=== PATIENT | male | born 1945 | race Caucasian/White ===

== ENCOUNTER → 2021-06-10 13:46 | Outpatient (CLI) | payer MEDICARE, SELFPAY ==
--- NOTE | ~2021-06-10 | US_ITS ---
EXAMINATION: US soft tissue head and neck DATE: 06/10/2021 14:28 INDICATION: Right neck lump. TECHNIQUE: Multiple grayscale and Doppler ultrasound images of the neck were obtained. COMPARISON: Neck CTA 01/03/2016 FINDINGS: There are normal lymph nodes in right neck in the patient's area of concern. IMPRESSION: 1. No abnormal mass or lymphadenopathy in the patient's area of concern. Reviewed, dictated and finalized at location B.
== END ==
PROVIDERS: PCP Family Medicine; Visit Provider Family Medicine
DX: R22.1 Localized swelling, mass and lump, neck (principal)
CPT/HCPCS: 76536

== ENCOUNTER 2022-04-17 11:46 | Outpatient (RCR) | payer MEDICARE, SELFPAY ==
[2022-04-17] MEDS: FAMOTIDINE 20 MG TABLET PO (14:48)
[2022-04-17] MEDS: ACETAMINOPHEN 325 MG TABLET 650 MG PO (14:48)
[2022-04-17] MEDS: diphenhydrAMINE HCl CAP 25 MG CAPSULE PO (14:48)
[2022-04-17 14:52] VITALS: BP 138/57; PULSE 68; RESP 18; TEMP 37; O2SAT 98
[2022-04-17] MEDS: BEBTELOVIMAB 175 MG/2 ML VIAL IV PUSH (15:09)
[2022-04-17 15:55] VITALS: BP 133/61; PULSE 77; RESP 18; O2SAT 99
== END 2022-04-17 16:00 ==
LOC: AMCINF 11:46
PROVIDERS: PCP Family Medicine; Referring Provider Family Medicine; Visit Provider Internal Medicine Hematology & Oncology
DX: U07.1 COVID-19 (principal)
CPT/HCPCS: A9270; M0222; Q0222

== ENCOUNTER 2022-07-30 07:42 | Outpatient (CLI) | payer MEDICARE, SELFPAY ==
--- NOTE | 2022-08-22 10:45 | WPDSLEEPSTUD ---
Sleep Study Date of Study: 07/30/22 Ordering Provider: Jp Holm MD Interpreting Physician: Deneen Torres MD Sleep Study Type: Split Polysomnogram Height: 1.7 m Weight: 117.934 kg Body Mass Index: 40.7 Neck Circumference (inches): 21 Elysian: 16 Reason for Sleep Study Loud snoring for years, was diagnosed with sleep apnea around 1986, has been on CPAP since. He has obstructive sleep apnea, hypertension, diabetes and a history of 2 strokes. * 09/21/2017 - CPAP titration with an optimal pressure of 12 cm. BMI at that time was 40.9, the same as he is now. Sleep History Joby Rodriges is a 77-year-old man with a history of obstructive sleep apnea since around 1986. There is a family history with 2 brothers and 1 sister also using CPAP. His father was a loud snorer. The patient rarely awakens from sleep feeling short of breath. He never awakens at night with heartburn, belching or coughing. He frequently snores and is frequently loud enough that others complain about it. He rarely has trouble sleeping with a cold. He rarely wakes up gasping for breath at night. He occasionally has breathing problems at night observed by others. He does not sweat excessively at night or notice his heart pounding or beating irregularly at night. He frequently falls asleep during the day, occasionally falls asleep involuntarily but never falls asleep while driving. He does not have loss of muscle tone with strong emotion. He occasionally has daytime difficulties due to excessive sleepiness. He never feels paralyzed on falling asleep or waking. He rarely has vivid dreamlike scenes upon awake lying asleep. He does not feel afraid to go to sleep. He rarely has nightmares. He rarely remembers his dreams. He does not have racing thoughts. He rarely feels sad, depressed or anxious. He rarely has muscular tension. He rarely notices parts of his body jerking, rarely kicks at night. He does not have crawling or aching feelings in his legs. He denies any kind of leg pain at night. He does not have morning jaw pain. He occasionally grinds his teeth during sleep. He is not bothered by pain during the day or awakened by pain during the night. He frequently wakes up feeling stiff the morning. He does not wake up with sore achy muscles. He occasionally wakes up with pain in the neck and spine. He has fatigue, memory problems, concentration difficulties. Normal bedtime is 1:00 a.m. taking 5 minutes to fall asleep and he does not wake during the night. He wakes the morning at 8:30 a.m.. He estimates getting 7 hours of sleep at night. His bumps him when he is snoring at night. He does not take naps in the day. He does not feel refreshed after short nap. He is usually drowsy in the morning for 3 hours or longer. Habits: Quit tobacco 25 years ago. Caffeine 1 or 2 servings a day. Occasional alcohol. No recreational drugs. [facility] Past Medical History Medical History HSV-1 (herpes simplex virus 1) infection Obesity (BMI 30.0-34.9) Other lacunar syndromes Overweight Perioral dermatitis Seborrheic dermatitis, unspecified Family History Family History (Updated 05/21/22 @ 13:40 by Kala Torres MA) Sibling Family history of kidney stones Father Diabetes mellitus Family history of lymphoma Mother Family history of glaucoma Family history of cardiovascular disease Daughter Breast cancer Migraine Other Family history of elevated blood lipids Social History Social History Smoking status: Former smoker Smoking end date: 10/26/95 Alcohol intake: current Medications Home Medications Medication Instructions Recorded Confirmed Type aspirin 81 mg tablet,delayed 81 mg PO DAILY 12/01/19 05/21/22 History release (Adult Low Dose Aspirin) ketoconazole 2 % shampoo 1 applic topical 3XW #120 mL
[2022-08-22 12:12] VITALS: BMI 40.7
== END 2022-07-31 06:13 | disposition home or self-care (01) ==
PROVIDERS: PCP Family Medicine; Visit Provider Family Medicine
DX: G47.33 Obstructive sleep apnea (adult) (pediatric) (principal)
CPT/HCPCS: 95811

== ENCOUNTER 2025-08-12 20:39 | Inpatient (IN) | payer MEDICARE, SELFPAY ==
--- OUTSIDE RECORDS SUMMARY | 2010-06-24 03:00 | XMS_ITS | Continuity of Care Document ---
Author Organization [facility] Address [address] [place] [address] Phone Care Team Providers Care Certified Ethical Hacker Name Role Phone Moy Vargas Unavailable Unavailable Procedures Procedure Date Visual Field Examination(s) Office/outpatient Visit, Est Office/outpatient Visit, Est Visual Field Examination(s) Eye Exam & Treatment Fundus Photography W/ Report Office/outpatient Visit, Est Post-op Follow-up Visit Laser Surgery Of Eye Office/outpatient Visit, Est Visual Field Examination(s) Office/outpatient Visit, Est Office/outpatient Visit, Est Eye Exam Established Pt Fundus Photography W/ Report Advance Directives Directive Yes / No Effective Date File Name No Information Encounters Encounter Description Practice Location Reason(s) For Visit Diagnoses Date Provider Providers Copied on Encounter [facility], [address], [place], [place], [address], [place] tel:[phone] [facility] No Information 0201 0 Sam Winter. [facility] , [address], [place], [address], [place]. tel:[phone] Referring Provider: [facility] [address], [place], [address]. tel:[phone] [facility], [address] [place] [address] [address], [place], [place], [address], [place] tel:[phone] [facility] No Information 2 4-201 0 Sam Winter. [address] [facility] [address], [address], [place], [place], [place], [place]. tel:[phone] Office[facility]pat ient [facility], [facility], [address] [place] [address] [address], [place], [place], [address], [place] tel:[phone] [facility] No Information 2 1200 9 Sam Winter. [address] [facility] [address], [address], [place], [place], [place]. tel:[phone] [facility], [address] [place] [address] [address], [place], [place], [address], [place] tel:[phone] [facility] No Information 1 0-200 9 Sam Winter. [address] [address], [address], [place], [place], [place]. tel:[phone] Referring Provider: Moy Monge, [facility] [address], [place], [place]. tel:[phone] [facility], [address] [place] [address] [address], [place], [place], [address], [place] tel:[phone] [facility] No Information 0 5-200 9 Sam Winter. [address] [facility] [address], [place], [address], [place]. tel:[phone] Referring Provider: Moy Monge, [facility] [address], [place], [place]. tel:[phone] Office/outpat ient Visit, [facility], [address] [place] [address] [address], [place], [place], [address], [place] tel:[phone] [facility] [place] No Information May-3 0-200 8 Sam Edmary lou. [address] [place], [place] [address]ate Center , [address], [place], [place], . tel:[phone] [facility], [address] [place] [address] [address], [place], [place], [address], [place] tel:[phone] SEC [facility] No Information February-1 6-200 8 Sam Edmary lou. [address] [place], [place] [address]ate Center , [address], [place], [place], . tel:[phone] [facility], [address], [place], [place], [address], [place] tel:[phone] [facility] No Information May-0 9-200 8 Sam Edmary lou. [address] [place], [place] [address]ate Center , [address], [place], [place], [place]. tel:[phone] Referring Provider: Moy Monge, [address] [place], [place] [address], [place], [place]. tel:[phone] Office/outpat ient Visit, [facility], [address], [place], [place], [address], [place] tel:[phone] [facility] No Information Jan-2 5-200 8 Sam Winter. [facility] , [address], [place], [place], [place]. tel:[phone] [facility], [address], [place], [place], [address], [place] tel:[phone] [facility] No Information Sep-1 7-200 7 Sam Winter. [facility] , [address], [place], [place], [place]. tel:[phone] Referring Provider: Moy Monge, [facility] [address], [place], [place]. tel:[phone] Office/outpat ient Visit, [facility], [address] [facility] [address], [place], [place], [address], tel:[phone] [facility] No Information 0200 7 Sam Winter. [facility] [address], [address], [place], [place], . tel:[phone] Office/outpat ient Visit, [facility], [address] [place] [address] [address], [place], [place], [address], tel:[phone] [facility] No Information 3200 7 Sam Winter. [facility], [address], [place], [place], . tel:[phone] [facility], [address] [facility] [facility] [address], [place], [place], [address], tel:[phone] [facility] No Information 6200 7 Sam Winter. [facility] [address], [address], [place], [place], . tel:[phone] Referring Provider: Moy Monge, April [address], [place], [place]. tel:[phone] Family History Family Member Type Diagnosis Age At Onset No Information Payers Payer name Insurance type Covered alliance party ID Tommy dorman(s) [facility] CI [id number] Social History Type Description Quantity Date Captured Comments Sex Male Smoking Status No Information Chief Complaint And Reason For Visit No Information Reason For Referral Reason For Referral No Information History Of Present Illness Encounter Date Complaint History Of Prese nt Illness No Information Functional Status Date Functional Assessmen t No Information Instructions Date Instruction Additional Infor mation No Information Assessments Type Assessment Date No Information Patient Care Teams Name Effective Dates (start - stop) Status Members No Information
--- OUTSIDE RECORDS SUMMARY | 2010-06-24 03:00 | XMS_ITS | Continuity of Care Document ---
Author Organization [facility] Address [address] [place] [address] Phone Care Team Providers Care Fur Mixer Name Role Phone Moy Vargas Unavailable Unavailable [...] Diagnoses Date Provider Providers Copied on Encounter [facility], [address], [place], [place], [address], [place] tel:[phone] [facility] No Information 0201 0 Sam Winter. [facility] , [address], [place], [address], [place]. tel:[phone] Referring Provider: [facility] [address], [place], [address]. tel:[phone] [facility]pat [facility], [address] [place] [address] [address], [place], [place], [address], [place] tel:[phone] [facility] No Information 2 4-201 0 Sam Winter. [address] [facility] [address], [address], [place], [facility], [place]. tel:[phone] Office/outpat ient [facility], [facility], [address] [place] [address] [address], [place], [place], [address], [place] tel:[phone] [facility] No Information 2 1200 9 Sam Winter. [address] [facility] [address], [address], [place], [facility], [place]. tel:[phone] [facility], [address] [place] [address] [address], [place], [place], [address], [place] tel:[phone] [facility] No Information 1 0-200 9 Sam Winter. [address] [facility] [address], [address], [place], [facility], [place]. tel:[phone] Referring Provider: Moy Monge, [facility] [address], [place], [facility]. tel:[phone] [facility], [address] [place] [address] [address], [place], [place], [address], [place] tel:[phone] [facility] No Information 0 5-200 9 Sam Winter. [address] [facility] [address], [place], [address], [place]. tel:[phone] Referring Provider: Moy Monge, [employer] [address], [place], [facility]. tel:[phone] Office/outpat ient Visit, [facility], [address] [place] [address] [address], [place], [place], [address], [place] tel:[phone] [facility] [place] No Information May-3 0-200 8 Sam Edmary lou. [address] [place], [place] [address]ate Center , [address], [place], [facility], . tel:[phone] [facility], [address] [place] [address] [address], [place], [place], [address], [place] tel:[phone] [facility] No Information February-1 6-200 8 Sam Edmary lou. [address] [place], [place] [address]ate Center , [address], [place], [facility], . tel:[phone] [facility], [address], [place], [place], [address], [place] tel:[phone] [facility] No Information May-0 9-200 8 Sam Edmary lou. [address] [place], [place] [address]ate Center , [address], [place], [facility], [place]. tel:[phone] Referring Provider: Moy Monge, [address] [place], [place] [address]ate [address], [place], [facility]. tel:[phone] Office/outpat ient Visit, [facility] [address], [place], [place], [address], [place] tel:[phone] [facility] No Information Jan-2 5-200 8 Sam Winter. [facility] , [address], [place], [facility], [place]. tel:[phone] [facility], [address], [place], [place], [address], [place] tel:[phone] [facility] No Information Sep-1 7-200 7 Sam Winter. [facility] , [address], [place], [facility], [place]. tel:[phone] Referring Provider: Moy Monge, [facility] [address], [place], [facility]. tel:[phone] Office/outpat ient Visit, [facility], [address] [facility] [address], [place], [place], [address], tel:[phone] [facility] No Information 0200 7 Sam Winter. [facility] [address], [address], [place], [facility], . tel:[phone] Office/outpat ient Visit, [facility], [address] [place] [address] [address], [place], [place], [address], tel:[phone] [facility] No Information 3200 7 Sam Winter. [facility] [address], [address], [place], [facility], . tel:[phone] [facility], [address] [facility] [address], [place], [place], [address], tel:[phone] [facility] No Information 6200 7 Sam Winter. [facility] [address], [address], [place], [facility], . tel:[phone] Referring Provider: Moy Monge, April [address], [place], [facility]. tel:[phone] Family History Family Member Type Diagnosis Age At Onset No Information Payers Payer name Insurance type Covered constitution party ID Tommy dorman(s) [facility] CI [id number] Social History Type Description Quantity Date Captured [...]
--- NOTE | ~2025-08-12 | MR_ITS ---
EXAMINATION: MR brain/brain stem wo con DATE: 08/13/2025 15:14 INDICATION: Stroke. TECHNIQUE: Magnetic resonance imaging (MRI) of the brain and brainstem was performed without intravenous contrast. COMPARISON: Brain MRI 01/03/2016, head CT 08/12/2025 FINDINGS: There are scattered areas of nonspecific increased T2-weighted signal intensity in the cerebral white matter and gris. There is an old infarct in left frontoparietal region. There is no intracranial hemorrhage, acute infarction, or abnormal intracranial mass lesion. The ventricles are normal in size. There is mucosal thickening in the paranasal sinuses. Left maxillary sinus is small with thickened and sclerotic rodriguez, consistent with chronic sinusitis. There are likely changes of ocular lens replacement surgeries. The mastoid air cells are normal. IMPRESSION: 1. Old infarct in left frontoparietal region. 2. Mild nonspecific cerebral white matter disease and pontine disease, which likely represents chronic small vessel ischemic disease. 3. Chronic left maxillary sinusitis. Reviewed, dictated and finalized at location E. IMPRESSION: 1. Old infarct in left frontoparietal region. 2. Mild nonspecific cerebral white matter disease and pontine disease, which layla renner represents chronic small vessel ischemic disease. 3. Chronic left maxillary sinusitis.
--- NOTE | ~2025-08-12 | CT_ITS ---
EXAMINATION: CT brain wo con DATE: 08/12/2025 21:07 INDICATION: Transient confusion. TECHNIQUE: Computed tomography (CT) of the head was performed without intravenous contrast. The mA was adjusted according to patient size. Iterative reconstruction technique was employed. The dose-length product was 681.00 mGy-cm. COMPARISON: Head CT 01/03/2016 FINDINGS: There is an old infarct in left frontoparietal region. There are scattered areas of low attenuation in the cerebral white matter. There is no intracranial hemorrhage, acute infarction, or abnormal intracranial mass lesion. The ventricles are normal in size. There are likely changes of ocular lens replacement surgeries. There is posterior scalp soft tissue swelling. There is mucosal thickening in the paranasal sinuses. Left maxillary sinus is small with sclerosis and thickening of the rodriguez, consistent with chronic sinusitis. The mastoid air cells are normal. IMPRESSION: 1. Old infarct in left frontoparietal region. 2. Mild nonspecific cerebral white matter disease, which likely represents chronic small vessel ischemic disease. 3. Chronic left maxillary sinusitis. Reviewed, dictated and finalized at location E. IMPRESSION: 1. Old infarct in left frontoparietal region. 2. 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 3. Chronic left maxillary sinusitis.
--- NOTE | ~2025-08-12 | CT_ITS ---
EXAMINATION: CTA brain carotid DATE: 08/12/2025 21:07 INDICATION: Altered mental status. TECHNIQUE: Computed tomographic angiography (CTA) of the head was performed with 100 mL Omnipaque-350 intravenous contrast. CTA of the neck was performed with intravenous contrast. Automated exposure control and iterative reconstruction technique were employed. The dose-length product was 1182.44 mGy-cm. Maximum intensity projection and volume rendered 3D-reconstructions were created by the technologist on a separate workstation. COMPARISON: Head CT 08/12/2025 FINDINGS: HEAD CTA: There is an old infarct in the left frontoparietal region. There are scattered areas of low attenuation in the cerebral white matter. There is no intracranial hemorrhage, acute infarction, or abnormal intracranial mass lesion. The ventricles are normal in size. There is mucosal thickening in the paranasal sinuses. Left maxillary sinus is small with thickening and sclerosis of the sinus rodriguez, consistent with chronic sinusitis. The mastoid air cells are normal. There are likely changes of ocular lens replacement surgeries. Left vertebral artery is dominant. There is no significant stenosis of basilar artery or the posterior cerebral arteries. The posterior communicating arteries are normal. There is no significant stenosis of the intracranial internal carotid arteries or anterior or middle cerebral arteries. Anterior communicating artery is normal. There is no aneurysm. NECK CTA: There is an 8 mm nodule in left thyroid lobe, likely not clinically significant. There is no significant stenosis of the vertebral arteries. There is plaque in the proximal internal carotid arteries. There is 0% stenosis of the proximal right internal carotid artery relative to normal distal artery lumen diameter (NASCET criteria). There is 40% stenosis of the proximal left internal carotid artery relative to normal distal artery lumen diameter. There is severe cervical spondylosis. C1 ring is ununited posteriorly, a normal variant. IMPRESSION: 1. Old infarct in left frontoparietal region. 2. Mild nonspecific cerebral white matter disease, which likely represents chronic small vessel ischemic disease. 3. No aneurysm or significant intracranial arterial stenosis. 4. 0% stenosis of the proximal right internal carotid artery relative to normal distal artery lumen diameter (NASCET criteria). 5. 40% stenosis of the proximal left internal carotid artery relative to normal distal artery lumen diameter. 6. Chronic sinusitis. Reviewed, dictated and finalized at location E. IMPRESSION: 1. Old infarct in left frontoparietal region. 2. 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 3. No aneurysm or significant intracranial arterial stenosis. 4. 0% stenosis of the proximal right internal carotid artery relative to normal distal artery lumen diameter (NASCET criteria). 5. 40% stenosis of the proximal left internal carotid artery relative to normal distal artery lumen diameter. 6. Chronic sinusitis.
--- OUTSIDE RECORDS SUMMARY | 2025-08-12 20:41 | XMS_ITS | Clinical Summary ---
Author Organization [facility] [address] Address [address] [place] [address] Care Team Providers Care Touch Up Painter Name Role Phone Jp Holm MD Primary Care Provider [phone] Social History Tobacco Use Types Packs/Day Years Used Date Smoking Tobacco: Never Assessed Personal Safety Answer Date Recorded Getting School Help Needed Not on file 12/25 Sex and Gender Information Value Date Recorded Sex Assigned at Not on file Legal Sex Male 2:27 AM STENOTYPIST Gender Identity Not on file Sexual Orientation Not on file Plan of Treatment Health Maintenance Due Date Last Done Comments Depression Screening 1945 Fall Risk Assessment 1945 Hepatitis C Screening 1945 DTaP/Tdap/Td Vaccine (1 - Tdap) 1957 Hepatitis B Screening 1964 Pneumococcal vaccine 65+ (1 of 1 - PCV) 1996 Well Visit 65+ 2011 Zoster Vaccine (2 of 3) 04/25/2015 02/28/2015 Covid-19 Vaccine (4 - 2024-2 6 season) 2025 09/05/2021, 01/15/2021, 12/06/2020 Influenza Vaccine (#1) 2025 , 08/11/2019, 08/09/2018, Additional history exists Insurance [facility] MEDIC[facility] Care Teams Touch Up Painter Relationship Specialty Start Date End Date Jp Holm MD PCP - General 01/15/16
--- NOTE | 2025-08-12 20:44 | ECG_ITS ---
Test Date: 2025-08-12 22:13:19 Measurements Intervals [place] Rate: 71 P: 54 CT: 185 QRS: 4 QRSD: 102 T: 60 QT: 330 QTc: 361 Interpretive Statements SINUS RHYTHM INCOMPLETE RIGHT BUNDLE BRANCH BLOCK DELAYED PRECORDIAL R/S TRANSITION CONSIDER INFERIOR INFARCT, AGE INDETERMINATE BORDERLINE T WAVE ABNORMALITY- HIGH LATERAL LEADS BASELINE ARTIFACT- I, II, III, AVR, AVL, AVF, V1-V6 BORDERLINE ECG No previous ECG available for comparison Electronically Signed On 08-13-2025 08:36:27 CDT by Aden Fisher D.O.
--- NOTE | 2025-08-12 20:55 | ED.AMS ---
HPI - Altered Mental Status General Chief Complaint: Altered Mental Status Stated Complaint: cva symptoms Time Seen by Provider: 08/12/25 20:44 Source: patient Mode of arrival: wheelchair Limitations: no limitations History of Present Illness HPI narrative: This is a 80-year-old male with history of GRANADOS, peripheral arterial disease, CVA, hypertension who presents the ED for transient confusion. Patient states that at 1945 patient had onset of confusion that he believes lasted 10-15 minutes. He states that his daughter witnessed this. She is not here at this time. Denies any numbness, tingling, weakness. Reports feeling fine just prior to this and feels back to his baseline at this time. Related Data Home Medications ?Medication ?Instructions ?Recorded ?Confirmed ?Last Taken ?Type aspirin 81 mg tablet,delayed 81 mg PO DAILY 12/01/19 08/12/25 Unknown History release (Adult Low Dose Aspirin) Allergies Allergy/AdvReac Type Severity Reaction Status Date / Time hydralazine Allergy Unknown Hives / Verified 08/12/25 21:22 Red Face Review of Systems Review of Systems: Gen.: Denies fevers or chills Eyes: Denies eye pain or visual change ENT: Denies congestion Respiratory: Denies shortness of breath or cough CV: Denies chest pain or palpitations GI: Denies abdominal pain nausea, emesis or diarrhea denies burning, urgency, frequency or hematuria Musculoskeletal: Denies back pain or muscle pain Neuro: As per HPI Skin: Denies rash Except as documented, all other systems reviewed and negative PMFSH Past Medical History Medical History Obesity (BMI 30.0-34.9) Perioral dermatitis 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 Overweight Seborrheic dermatitis, unspecified Family History Family History Sibling Family history of kidney stones Father Diabetes mellitus Family history of lymphoma Mother Family history of glaucoma Family history of cardiovascular disease Daughter Breast cancer Migraine Other Family history of elevated blood lipids Social History Social History Smoking status: Former smoker Smoking end date: 10/26/95 Alcohol intake: current Alcohol use details: occasionally Substance use: never Substance use type: does not use Do You Feel Safe in your Home?: Yes Lack of Transportation: No Lack of Food: Never True Current Housing: I Have Housing Concerned About Future Housing: No Difficulty Paying Gas/Electric Bills: No Difficulty Paying for Meds: No Currently Unemployed: No Education: High School Diploma/GED Difficulty w/ Childcare or Family Care: No Exam Narrative: APPEARANCE: No acute distress, nontoxic, resting in bed EYES: EOMI HEENT: Normocephalic, atraumatic, OMM RESPIRATORY: No respiratory distress Clear to auscultation bilaterally with no rhonchi wheezing or rales. CARDIOVASCULAR: Regular rate and rhythm without murmurs rubs or gallops. ABDOMINAL: Soft, nontender, nondistended, no rebound or guarding MUSCULOSKELETAl: Moves all extremities. No clubbing, cyanosis or edema. NEURO: Awake and alert. Following commands, speech normal, no focal deficits. CN 2 through 12 intact. 5/5 strength to all extremities. Sensation intact globally. NIH 0 SKIN:: Warm, dry. No rashes lesions or abrasions PSYCHIATRIC: Normal affect/mood, Course Vital Signs Vital signs: Vital Signs Temperature 97.6 F 08/12/25 21:12 Pulse Rate 70 08/12/25 21:12 Respiratory Rate 15 08/12/25 21:12 Blood Pressure 149/80 H 08/12/25 21:12 Pulse Oximetry 99 08/12/25 21:12 Oxygen Delivery Room Air 08/12/25 21:12 Temperature 97.6 F 08/12/25 21:21 Pulse Rate 64 08/13/25 09:00 Respiratory Rate 15 08/13/25 09:00 Blood Pressure 152/70 H 08/13/25 09:00 Pulse Oximetry 99 08/13/25 09:00 Oxygen Delivery Room Air 08/13/25 09:00 MDM - Altered Mental Status MDM Narrative Medical decision making narrative: 80-year-old male presenting for concerns for altered mental status and stroke. Patient was seen and stroke. And NIH was 0. He reported that he was feeling better. He was otherwise hemodynamically stable, afebrile. Patient taken immediately to CT. But read showed no evidence of intracranial bleeds. CT head and CTA head/neck showed no acute process. CBC and CMP without significant abnormalities. UA clear. UDS negative. Upon further discussion with the patient and daughter, he was having some intermittent word-finding difficulties which was similar to a prior stroke. Suspect that he is having a stroke at this time. He was given 162 mg aspirin. I did discuss the case with Dr. Parker, neurology, does recommend Plavix now and MRI tomorrow and he will see the patient as consult. Case discussed with hospitalist who will admit the patient. Differential Diagnosis Differential diagnosis: Likely altered mental status and other (CVA, intoxication, electrolyte abnormality) Medical Records Attestation: I reviewed the patient's medical records. Lab Data Attestation: I reviewed the patient's lab results. 08/12/25 20:55 08/12/25 20:56 Labs: Lab Results 08/12/25 08/12/25 08/12/25 Range/Units 20:43 20:55 20:56 WBC 8.1 (4.5-10.0) K/mm3 RBC 4.72 (4.6-6.20) M/mm3 Hgb 15.2 (14.0-18.0) g/dL Hct 45.7 (42.0-52.0) % MCV 96.8 (80-100) fl MCH 32.2 (26-34) pg MCHC 33.3 (32-36) g/dl RDW 12.9 (11.5-14.5) % Plt Count 293 (150-375) k/mm3 MPV 8.9 (7.4-10.4) fl Immature Gran % (Auto) 0.4 (0-0.5) % Neut % (Auto) 50.0 (45.5-73.1) % Lymph % (Auto) 37.2 (18.3-44.2) % [place] % (Auto) 10.1 H (2.6-8.5) % Eos % (Auto) 1.7 (0-4.4) % Baso % (Auto) 0.6 (0.2-1.2) % Lymph # (Auto) 3.01 (0.9-3.2) K/mm3 [place] # (Auto) 0.8 H (0.1-0.6) K/mm3 Eos # (Auto) 0.1 (0-0.3) K/mm3 Baso # (Auto) 0.1 (0.0-0.1) K/mm3 Abs Immat Gran (auto) 0.03 (0.00-0.031) K/mm3 Absolute Neuts (auto) 4.0 (1.3-6.7) K/mm3 Absolute Nucleated RBC 0.000 (0.0-0.012) K/mm3 Nucleated RBC % 0.0 (0.0-0.2) % PT 13.3 (11.1-14.7) Seconds INR 1.0 APTT 34.8 (22.3-36.8) Seconds Sodium 141 (137-145) mmol/L Potassium 4.2 (3.4-5.0) mmol/L Chloride 102 (98-107) mmol/L Carbon Dioxide 29 (22-30) mmol/L Anion Gap 10 (4-12) mmol/L BUN 16 (9-20) mg/dL Creatinine 1.04 1.20 (0.7-1.3) mg/dL Estim Creat Clear Calc Not Reportable Not Reportable Estimated GFR > 60 58 L (59 - ) Glucose 124 H (65-110) mg/dL POC Capillary Glucose 131 H (65-105) mg/dl Calcium 10.0 (8.4-10.2) mg/dL Total Bilirubin 0.7 (0.2-1.3) mg/dL AST 53 (17-59) U/L ALT 49 (6-50) U/L Alkaline Phosphatase 78 (38-126) U/L Troponin I < 0.012 (0.000-0.034) ng/mL Total Protein 8.9 H (6.3-8.2) g/dL Albumin 4.8 (3.5-5.1) g/dL Urine Color (Yellow) Urine Appearance (Clear) Urine pH (5.0-9.0) Ur Specific [place] (1.001-1.035) Urine Protein (Negative) mg/dL Urine Glucose (UA) (Negative) mg/dL Urine Ketones (Negative) mg/dL Ur Blood (Man) (Negative) Urine Nitrate (Negative) Urine Bilirubin (Negative) Urine Urobilinogen (<2.0) mg/dL Leukocyte Esterase Rfl (Negative) CORDELL/UL Urine Opiates Screen (Negative) Urine Methadone Screen (Negative) Ur Barbiturates Screen (Negative) Ur Phencyclidine Scrn (Negative) Ur Amphetamine Screen (Negative) U Benzodiazepines Scrn (Negative) Urine Cocaine Screen (Negative) U Cannabinoids Screen (Negative) Ethyl Alcohol < 10 (<10) mg/dL 08/12/25 Range/Units 21:17 WBC (4.5-10.0) K/mm3 RBC (4.6-6.20) M/mm3 Hgb (14.0-18.0) g/dL Hct (42.0-52.0) % MCV (80-100) fl MCH (26-34) pg MCHC (32-36) g/dl RDW (11.5-14.5) % Plt Count (150-375) k/mm3 MPV (7.4-10.4) fl Immature Gran % (Auto) (0-0.5) % Neut % (Auto) (45.5-73.1) % Lymph % (Auto) (18.3-44.2) % [place] % (Auto) (2.6-8.5) % Eos % (Auto) (0-4.4) % Baso % (Auto) (0.2-1.2) % Lymph # (Auto) (0.9-3.2) K/mm3 [place] # (Auto) (0.1-0.6) K/mm3 Eos # (Auto) (0-0.3) K/mm3 Baso # (Auto) (0.0-0.1) K/mm3 Abs Immat Gran (auto) (0.00-0.031) K/mm3 Absolute Neuts (auto) (1.3-6.7) K/mm3 Absolute Nucleated RBC (0.0-0.012) K/mm3 Nucleated RBC % (0.0-0.2) % PT (11.1-14.7) Seconds INR APTT (22.3-36.8) Seconds Sodium (137-145) mmol/L Potassium (3.4-5.0) mmol/L Chloride (98-107) mmol/L Carbon Dioxide (22-30) mmol/L Anion Gap (4-12) mmol/L BUN (9-20) mg/dL Creatinine (0.7-1.3) mg/dL Estim Creat Clear Calc Estimated GFR (59 - ) Glucose (65-110) mg/dL POC Capillary Glucose (65-105) mg/dl Calcium (8.4-10.2) mg/dL Total Bilirubin (0.2-1.3) mg/dL AST (17-59) U/L ALT (6-50) U/L Alkaline Phosphatase (38-126) U/L Troponin I (0.000-0.034) ng/mL Total Protein (6.3-8.2) g/dL Albumin (3.5-5.1) g/dL Urine Color Yellow (Yellow) Urine Appearance Clear (Clear) Urine pH 5.5 (5.0-9.0) Ur Specific [place] 1.021 (1.001-1.035) Urine Protein Negative (Negative) mg/dL Urine Glucose (UA) Negative (Negative) mg/dL Urine Ketones Trace H (Negative) mg/dL Ur Blood (Man) Negative (Negative) Urine Nitrate Negative (Negative) Urine Bilirubin Negative (Negative) Urine Urobilinogen 1.0 (<2.0) mg/dL Leukocyte Esterase Rfl Negative (Negative) CORDELL/UL Urine Opiates Screen Negative (Negative) Urine Methadone Screen Negative (Negative) Ur Barbiturates Screen Negative (Negative) Ur Phencyclidine Scrn Negative (Negative) Ur Amphetamine Screen Negative (Negative) U Benzodiazepines Scrn Negative (Negative) Urine Cocaine Screen Negative (Negative) U Cannabinoids Screen Negative (Negative) Ethyl Alcohol (<10) mg/dL Imaging Data Attestation: I personally reviewed and interpreted this imaging study as follows: Radiologist's impression: CT Head IMPRESSION: 1. Old infarct in left frontoparietal region. 2. Mild nonspecific cerebral white matter disease, which likely represents chronic small vessel ischemic disease. 3. Chronic left maxillary sinusitis. CTA Head/Neck IMPRESSION: 1. Old infarct in left frontoparietal region. 2. Mild nonspecific cerebral white matter disease, which likely represents chronic small vessel ischemic disease. 3. No aneurysm or significant intracranial arterial stenosis. 4. 0% stenosis of the proximal right internal carotid artery relative to normal distal artery lumen diameter (NASCET criteria). 5. 40% stenosis of the proximal left internal carotid artery relative to normal distal artery lumen diameter. 6. Chronic sinusitis. Discharge Plan Discharge Clinical Impression: Difficulty articulating words, History of cardioembolic cerebrovascular accident (CVA) Patient Disposition: Still a Patient Condition: Stable
[2025-08-12 20:58] LABS: Estimated Glomerular Filt Rate 58
[2025-08-12 21:08] LABS: Hematocrit 45.7 % (42.0-52.0); Hemoglobin 15.2 g/dL (14.0-18.0); Immature Granulocyte Percent A 0.4 % (0-0.5); Lymphocytes Absolute Auto 3.01 K/mm3 (0.9-3.2); Mean Corpuscular HGB Conc 33.3 g/dl (32-36); Mean Corpuscular Hemoglobin 32.2 pg (26-34); Mean Corpuscular Volume 96.8 fl (80-100); Nucleated Red Blood Cells Absolute Auto 0.000 K/mm3 (0.0-0.012); Nucleated Red Blood Cells Perc 0.0 % (0.0-0.2); Platelet Count Result 293 k/mm3 (150-375); Red Blood Count 4.72 M/mm3 (4.6-6.20); White Blood Count 8.1 K/mm3 (4.5-10.0)
[2025-08-12 21:12] VITALS: BP 149/80; PULSE 70; RESP 15; TEMP 36.4; O2SAT 99
[2025-08-12 21:18] LABS: Alanine Aminotransferase 49 U/L (6-50); Albumin Level 4.8 g/dL (3.5-5.1); Alkaline Phosphatase 78 U/L (38-126); Anion Gap 10 mmol/L (4-12); Aspartate Amino Transferase 53 U/L (17-59); Bilirubin,Total 0.7 mg/dL (0.2-1.3); Blood Urea Nitrogen 16 mg/dL (9-20); Calcium 10.0 mg/dL (8.4-10.2); Carbon Dioxide 29 mmol/L (22-30); Chloride 102 mmol/L (98-107); Estimated Glomerular Filt Rate > 60; Glucose 124 mg/dL (65-110); Potassium 4.2 mmol/L (3.4-5.0); Sodium 141 mmol/L (137-145); Total Protein 8.9 g/dL (6.3-8.2)
[2025-08-12 21:19] VITALS: O2SAT 99
[2025-08-12 21:21] VITALS: BP 149/80; PULSE 70; RESP 17; TEMP 36.4; O2SAT 100
[2025-08-12 21:25] LABS: Add Urine Microscopic? NO; Appearance Urine Clear (Clear); Glucose Urine UA Negative (Negative); Leukocyte Esterase Ur Negative LEU/UL (Negative); Nitrate Urine Negative (Negative); Specific Grav Ur 1.021 (1.001-1.035)
[2025-08-12 21:25] LABS: INR 1.0; Prothrombin Time 13.3 Seconds (11.1-14.7)
[2025-08-12 21:26] LABS: Partial Thromboplastin Time 34.8 Seconds (22.3-36.8)
[2025-08-12 21:30] LABS: Troponin I < 0.012 ng/mL (0.000-0.034)
[2025-08-12 21:41] LABS: Cannabinoid Screen Urine Negative (Negative)
[2025-08-12] MEDS: ASPIRIN 81 MG CHEWABLE TABLET 161 MG PO (21:53)
[2025-08-12 22:01] VITALS: BP 130/65; PULSE 66; RESP 12; O2SAT 97
[2025-08-12] MEDS: CLOPIDOGREL BISULFATE 75 MG TABLET PO (22:02)
[2025-08-12 22:42] VITALS: BP 132/71; PULSE 61; RESP 15; O2SAT 98
[2025-08-13] VITALS (12 sets, daily range): BP systolic 132–154; BP diastolic 66–96; PULSE 57–95; RESP 14–20; TEMP 36.3–36.8; O2SAT 95–99; BMI 41.2; BMI 42.5
--- NOTE | 2025-08-13 00:05 | PM.IMHP ---
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 Overweight Seborrheic dermatitis, unspecified Family History Family History Sibling Family history of kidney stones Father Diabetes mellitus Family history of lymphoma Mother Family history of glaucoma Family history of cardiovascular disease Daughter Breast cancer Migraine Other Family history of elevated blood lipids Social History Social History Smoking status: Former smoker Smoking end date: 10/26/95 Alcohol intake: current Alcohol use details: occasionally Substance use: never Substance use type: does not use Do You Feel Safe in your Home?: Yes Lack of Transportation: No Lack of Food: Never True Current Housing: I Have Housing Concerned About Future Housing: No Difficulty Paying Gas/Electric Bills: No Difficulty Paying for Meds: No Currently Unemployed: No Education: High School Diploma/GED Difficulty w/ Childcare or Family Care: No Meds Home Medications and Allergies Home Medications ?Medication ?Instructions ?Recorded ?Confirmed ?Type aspirin 81 mg tablet,delayed 81 mg PO DAILY 12/01/19 08/12/25 History release (Adult Low Dose Aspirin) icosapent ethyl 1 gram capsule 2 g (2 x 1 gram) PO BID #360 caps 11/01/24 08/12/25 Rx (Vascepa) metformin 500 mg tablet,extended See Rx Instructions .Route 03/21/25 08/12/25 Rx release 24 hr .COMPLEX #180 tabs doxycycline monohydrate 100 mg 100 mg PO DAILY #90 caps 03/28/25 08/12/25 Rx capsule amlodipine 5 mg tablet See Rx Instructions .Route 06/19/25 08/12/25 Rx .COMPLEX #180 tabs atorvastatin 10 mg tablet See Rx Instructions .Route 06/19/25 08/12/25 Rx .COMPLEX #90 tabs clopidogrel 75 mg tablet See Rx Instructions .Route 06/19/25 08/12/25 Rx .COMPLEX #90 tabs ergocalciferol (vitamin D2) 1,250 See Rx Instructions .Route 06/19/25 08/12/25 Rx mcg (50,000 unit) capsule (Vitamin .COMPLEX #26 caps D2) lisinopril 20 mg tablet See Rx Instructions .Route 06/19/25 08/12/25 Rx .COMPLEX #180 tabs Allergies Allergy/AdvReac Type Severity Reaction Status Date / Time hydralazine Allergy Unknown Hives / Verified 08/12/25 21:22 Red Face Vital Signs Vital Signs - 24 hr 08/12/25 21:12 08/12/25 21:19 08/12/25 21:21 Temperature 97.6 F Pulse Rate 70 70 Respiratory Rate 15 Blood Pressure 149/80 H Pulse Oximetry 99 99 Oxygen Delivery Room Air Room Air 08/12/25 21:21 08/12/25 22:01 08/12/25 22:42 Temperature 97.6 F Pulse Rate 70 66 61 Respiratory Rate 17 12 15 Blood Pressure 149/80 H 130/65 132/71 Pulse Oximetry 100 97 98 Oxygen Delivery H&P: Results Labs Labs: Short CBC 08/12/25 Range/Units 20:55 WBC 8.1 (4.5-10.0) K/mm3 Hgb 15.2 (14.0-18.0) g/dL Hct 45.7 (42.0-52.0) % Plt Count 293 (150-375) k/mm3 BMP 08/12/25 08/12/25 20:55 20:56 Sodium 141 Potassium 4.2 Chloride 102 Carbon Dioxide 29 BUN 16 Creatinine 1.04 1.20 Glucose 124 H Calcium 10.0 Cardiac Enzymes 08/12/25 Range/Units 20:55 Troponin I < 0.012 (0.000-0.034) ng/mL Liver Function 08/12/25 Range/Units 20:55 Total Bilirubin 0.7 (0.2-1.3) mg/dL AST 53 (17-59) U/L ALT 49 (6-50) U/L Alkaline Phosphatase 78 (38-126) U/L Albumin 4.8 (3.5-5.1) g/dL Urine 08/12/25 Range/Units 21:17 Urine Color Yellow (Yellow) Urine Appearance Clear (Clear) Urine pH 5.5 (5.0-9.0) Ur Specific [place] 1.021 (1.001-1.035) Urine Protein Negative (Negative) mg/dL Urine Glucose (UA) Negative (Negative) mg/dL
--- NOTE | 2025-08-13 09:37 | PC.NURSE ---
Pharmacy contacted for AM dose of medications.
[2025-08-13] MEDS: CLOPIDOGREL BISULFATE 75 MG TABLET PO (10:09)
[2025-08-13] MEDS: ASPIRIN 81 MG ENTERIC TABLET PO (10:10)
--- OUTSIDE RECORDS SUMMARY | 2025-08-13 10:20 | XMS_ITS | Clinical Summary ---
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
--- NOTE | 2025-08-13 10:25 | PC.NURSE ---
Only 40mg Atorvastatin received from pharmacy. Called to get full dose at this time.
[2025-08-13] MEDS: ATORVASTATIN 40 MG TABLET 80 MG PO (10:40)
--- NOTE | 2025-08-13 10:59 | PM.IMHP ---
H&P: HPI History of Present Illness Date/Time: 08/13/25 10:59 Chief Complaint: ams Narrative: 80-year-old male with history of GRANADOS, peripheral arterial disease, CVA, hypertension admitted from ED for an apisode of confusion. Patient states that at 1945 patient had onset of confusion that he believes lasted 10-15 minutes. He states that his daughter witnessed this. She is not here at this time. Denies any numbness, tingling, weakness. Reports feeling fine just prior to this and feels back to his baseline at this time. NIH- [address] head-no evidence of intracranial bleeds. CTA head/neck showed no acute process. CBC and CMP without significant abnormalities. UA clear. UDS negative. In ed he was having some intermittent word-finding difficulties which was similar to a prior stroke. He was given 162 mg aspirin. ED Md consulted Dr. Parker, neurology, who recommend Plavix now and MRI and admission. Pt is seen and examined. His speech is clear, no neuro deficit noted. He denies pain, sob, n/v/d. Review of Systems Review of Systems: All systems reviewed & are unremarkable except as noted in HPI and below PMFSH Past Medical History Medical History Obesity (BMI 30.0-34.9) Perioral dermatitis 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 Overweight Seborrheic dermatitis, unspecified Family History Family History Sibling Family history of kidney stones Father Diabetes mellitus Family history of lymphoma Mother Family history of glaucoma Family history of cardiovascular disease Daughter Breast cancer Migraine Other Family history of elevated blood lipids Social History Social History Smoking status: Former smoker Alcohol intake: current Drinks per week: 1 Alcohol use details: occasionally Substance use: never Substance use type: does not use Do You Feel Safe in your Home?: Yes Lack of Transportation: No Lack of Food: Never True Current Housing: I Have Housing Concerned About Future Housing: No Difficulty Paying Gas/Electric Bills: No Difficulty Paying for Meds: No Currently Unemployed: No Education: High School Diploma/GED Difficulty w/ Childcare or Family Care: No Spiritual care concerns: No Meds Home Medications and Allergies Home Medications ?Medication ?Instructions ?Recorded ?Confirmed ?Type aspirin 81 mg tablet,delayed 81 mg PO DAILY 12/01/19 08/12/25 History release (Adult Low Dose Aspirin) icosapent ethyl 1 gram capsule 2 g (2 x 1 gram) PO BID #360 caps 11/01/24 08/12/25 Rx (Vascepa) metformin 500 mg tablet,extended See Rx Instructions .Route 03/21/25 08/12/25 Rx release 24 hr .COMPLEX #180 tabs amlodipine 5 mg tablet See Rx Instructions .Route 06/19/25 08/12/25 Rx .COMPLEX #180 tabs atorvastatin 10 mg tablet See Rx Instructions .Route 06/19/25 08/12/25 Rx .COMPLEX #90 tabs clopidogrel 75 mg tablet See Rx Instructions .Route 06/19/25 08/12/25 Rx .COMPLEX #90 tabs ergocalciferol (vitamin D2) 1,250 See Rx Instructions .Route 06/19/25 08/12/25 Rx mcg (50,000 unit) capsule (Vitamin .COMPLEX #26 caps D2) lisinopril 20 mg tablet See Rx Instructions .Route 06/19/25 08/12/25 Rx .COMPLEX #180 tabs Allergies Allergy/AdvReac Type Severity Reaction Status Date / Time hydralazine Allergy Unknown Hives / Verified 08/13/25 13:41 Red Face Vital Signs Vital Signs - 24 hr 08/12/25 21:12 08/12/25 21:19 08/12/25 21:21 Temperature 97.6 F Pulse Rate 70 70 Respiratory Rate 15 Blood Pressure 149/80 H Pulse Oximetry 99 99 Oxygen Delivery Room Air Room Air 08/12/25 21:21 08/12/25 22:01 08/12/25 22:42 Temperature 97.6 F Pulse Rate 70 66 61 Respiratory Rate 17 12 15 Blood Pressure 149/80 H 130/65 132/71 Pulse Oximetry 100 97 98 Oxygen Delivery 08/13/25 03:02 08/13/25 04:00 08/13/25 04:01 Temperature Pulse Rate 75 95 58 L Respiratory Rate 18 14 Blood Pressure 149/80 H 137/81 Pulse Oximetry 98 97 98 Oxygen Delivery Autopap 08/13/25 04:31 08/13/25 04:41 08/13/25 04:46 Temperature Pulse Rate 57 L 95 60 Respiratory Rate 16 20 14 Blood Pressure 133/83 154/96 H Pulse Oximetry 97 97 98 Oxygen Delivery CPAP 08/13/25 09:00 08/13/25 09:00 08/13/25 10:19 Temperature Pulse Rate 64 68 Respiratory Rate 15 17 Blood Pressure 152/70 H 152/70 H Pulse Oximetry 99 98 Oxygen Delivery Room Air Exam Const: General: comfortable Resp: Effort & Inspection: normal respiratory effort Auscultation: clear to auscultation bilaterally Cardio: Rate: regular rate Rhythm: regular rhythm GI: GI Palp: Yes Soft to palpation Auscultation: normal bowel sounds Neuro: Motor exam (neuro): 5/5 motor strength present throughout Extrem: General: normal to inspection Psych: Affect: normal affect H&P: Results Labs Labs: Short CBC 08/12/25 Range/Units 20:55 WBC 8.1 (4.5-10.0) K/mm3 Hgb 15.2 (14.0-18.0) g/dL Hct 45.7 (42.0-52.0) % Plt Count 293 (150-375) k/mm3 BMP 08/12/25 08/12/25 20:55 20:56 Sodium 141 Potassium 4.2 Chloride 102 Carbon Dioxide 29 BUN 16 Creatinine 1.04 1.20 Glucose 124 H Calcium 10.0 Cardiac Enzymes 08/12/25 Range/Units 20:55 Troponin I < 0.012 (0.000-0.034) ng/mL Liver Function 08/12/25 Range/Units 20:55 Total Bilirubin 0.7 (0.2-1.3) mg/dL AST 53 (17-59) U/L ALT 49 (6-50) U/L Alkaline Phosphatase 78 (38-126) U/L Albumin 4.8 (3.5-5.1) g/dL Urine 08/12/25 Range/Units 21:17 Urine Color Yellow (Yellow) Urine Appearance Clear (Clear) Urine pH 5.5 (5.0-9.0) Ur Specific [place] 1.021 (1.001-1.035) Urine Protein Negative (Negative) mg/dL Urine Glucose (UA) Negative (Negative) mg/dL Assessment and Plan Assessment and plan (1) Essential (primary) hypertension: Code(s): I10 - Essential (primary) hypertension Status: Chronic (2) PAD (peripheral artery disease): Code(s): I73.9 - Peripheral vascular disease, unspecified Status: Chronic (3) Pure hyperglyceridemia: Code(s): E78.1 - Pure hyperglyceridemia Status: Chronic (4) Mixed hyperlipidemia: Code(s): E78.2 - Mixed hyperlipidemia Status: Chronic (5) Obesity (BMI 30.0-34.9): Code(s): E66.9 - Obesity, unspecified Status: Acute (6) Nonalcoholic steatohepatitis (GRANADOS): Code(s): K75.81 - Nonalcoholic steatohepatitis (GRANADOS) Status: Acute (7) History of cardioembolic cerebrovascular accident (CVA): Code(s): Z86.73 - Personal history of transient ischemic attack (TIA), and cerebral infarction without residual deficits Status: Acute (8) Difficulty articulating words: Code(s): R47.1 - Dysarthria and anarthria Status: Acute (9) Altered mental state: Code(s): R41.82 - Altered mental status, unspecified Status: Acute Plan 80-year-old male with history of GRANADOS, peripheral arterial disease, CVA, hypertension admitted from ED for an apisode of confusion. Patient states that at 1945 patient had onset of confusion that he believes lasted 10-15 minutes. He states that his daughter witnessed this. She is not here at this time. Denies any numbness, tingling, weakness. Reports feeling fine just prior to this and feels back to his baseline at this time. NIH- [address] head-no evidence of intracranial bleeds. CTA head/neck showed no acute process. CBC and CMP without significant abnormalities. UA clear. UDS negative. In ed he was having some intermittent word-finding difficulties which was similar to a prior stroke. He was given 162 mg aspirin. ED Md consulted Dr. Parker, neurology, who recommend Plavix now and MRI and admission. will continue home meds palvix, asa, statin neurology consulted- awaiting recommendations SS, diabetic diet, hypoglycemia protocol ordered monitor BS and adjst as needed daily labs monitor neurostatus, neurochecks q4h - bedside swallow eval and if needed will consult speech for furtehr eval. NO deficit upon exam- no need to do speech eval for now mri today neurology eval pending full code SCD ordered Quality VTE Prophylaxis VTE prophylaxis: mechanical ordered Hospitalist [facility] Advance Care Plan I have confirmed that the patient's Advanced Care Plan is present, code status is documented, or surrogate decision maker is listed in patient medical record.: Yes Medication Reconciliation I have utilized all available resources to obtain, update and review the patients current medications (includes all prescriptions, OTC, herbals, cannabis, and nutritional supplements).: Yes
--- NOTE | 2025-08-13 12:16 | ADMGEN ---
This patient, Joby Rodriges, was admitted to Medical Room 343-01. Patient/family oriented to hospital policies and general routines including ID bracelet, bed and alarms, visiting hours, pain management, procedures, bathroom and other care routines, personal items, smoking policy, room service/diet, and visiting hours. Information on how to activate the Rapid Response Team has been discussed. Patient/Family are encouraged to report perceived risks to care and to ask questions if they do not understand what they are told or what they should do.
[2025-08-13] MEDS: OMEGA 3 POLYUNSAT FATTY ACIDS 1 GM CAP 2 GM PO (16:52)
[2025-08-14] VITALS (12 sets, daily range): BP systolic 119–144; BP diastolic 70–75; PULSE 52–95; RESP 16–18; TEMP 36.2–36.7; O2SAT 96–98
--- NOTE | 2025-08-14 | ECHO_ITS ---
Patient Info Name: Joby Rodriges Age: 80 years : 1945 Gender: Male Ht: 67 in Wt: 271 lbs BSA: 2.47 m2 HR: 59 bpm BP: 119 / 71 mmHg Technical Quality: Fair Exam Date: 08/14/2025 1:47 PM Patient Status: I Admit Date: 08/13/2025 Exam Type: CA echo dop bubble study w con Complete two-dimentional, color flow and Doppler transthoracic echocardiogram is performed with agitated saline and with contrast to opacify the left ventricle and to improve the delineation of the left ventricle endocardial borders. Staff Referring Physician: Cesar Hough [employer]: Alcides Pierce III Attending Provider: Lydia Joshi Contrast/Agitated Saline Contrast/Ag. Saline: Definity Amount: 2.00 ml Administered By: Alcides Pierce III Existing IV Access: Yes IV Access Condition: patent with no signs of infiltration Contrast/Ag. Saline: Agitated Saline Amount: 12.00 ml Administered By: Alcides Pierce III Existing IV Access: Yes IV Access Condition: patent with no signs of infiltration Summary 1. Definity contrast administered improved wall motion interpretation. 2. Left ventricular chamber dimension is normal. 3. Left ventricular systolic function is hyperdynamic, estimated at >70. 4. The left ventricular diastolic function is grade I diastolic dysfunction. 5. E/e' 17 is elevated. 6. Left atrial chamber dimension is mildly enlarged. 7. The aortic root size at the sinus of Valsalva is mildly dilated at 4.3 cm. Left Ventricle E/e' 17 is elevated. Left ventricular chamber dimension is normal. Left ventricular systolic function is hyperdynamic, estimated at >70. The left ventricular diastolic function is grade I diastolic dysfunction. Definity contrast administered improved wall motion interpretation. Right Ventricle Right ventricular chamber dimension is normal. Right ventricular systolic function is normal and with normal TAPSE 2.5 cm. Left Atria Left atrial chamber dimension is mildly enlarged. Right Atria Right atrial chamber dimension is normal. Atrial Septum Intact interatrial septum visualized by 2D and agitated saline imaging. Agitated saline injection with and without valsalva maneuver opacified right side cardiac chambers without shunt to left side cardiac chambers. Aortic Valve The aortic valve is trileaflet. There is no aortic valve stenosis. There is no aortic valve regurgitation. Pulmonic Valve There is no pulmonic regurgitation. Mitral Valve There is no mitral valve stenosis. There is no mitral valve regurgitation. Tricuspid Valve There is no tricuspid valve regurgitation. Pericardium/Pleural There is no pericardial effusion. Inferior Vena Cava Normal inferior vena cava with >50% collapse upon inspiration consistent with normal right atrial pressure, 5 mmHg. Aorta The aortic root size at the sinus of Valsalva is mildly dilated at 4.3 cm. Left Ventricular Outflow Tract Name Value Normal LVOT 2D LVOT Diameter 2.4 cm LVOT Doppler LVOT Peak Velocity 142 cm/s LVOT Peak Gradient 8 mmHg LVOT Mean Gradient 4 mmHg LVOT VTI 29 cm LVOT VTI/AV VTI Ratio 1.0 LVOT Stroke Volume 135 ml LVOT CO 8.2 l/min LVOT CI 3.3 l/min/m2 Pulmonic Valve Name Value Normal PV Doppler PV Peak Velocity 121 cm/s PV Peak Gradient 6 mmHg PV Mean Gradient 3 mmHg Mitral Valve Name Value Normal MV Doppler MV Peak Gradient 5 mmHg MV Mean Gradient 2 mmHg MV Area (Cont Eq VTI) 3.9 cm2 MV Diastolic Function MV E Peak Velocity 83 cm/s MV A Peak Velocity 105 cm/s MV E/A 0.8 MV Decel Time (PW) 335 ms MV Annular TDI MV E/e' (Septal) 17.8 MV E/e' (Lateral) 17.4 MV E/e' (Average) 17.6 Tricuspid Valve Name Value Normal Estimated PAP/RSVP RA Pressure 5 mmHg <=5 TV Annular TDI TV Lateral Korin s' Velocity 16.3 cm/s >=9.5 Aortic Valve Name Value Normal AV Doppler AV Peak Velocity 154 cm/s AV Peak Gradient 10 mmHg AV Mean Gradient 4 mmHg AV VTI 30 cm AV Area (Cont Eq VTI) 4.5 cm2 >=3.0 AV Area (Cont Eq Valentino) 4.3 cm2 AV DI (Valentino) 0.92 AV Regurgitation 2D LVOT Area 4.6 cm2 Ventricles Name Value Normal LV Dimensions 2D/MM LVOT Diameter 2.4 cm LV Fractional Shortening/Ejection Fraction 2D/MM LV Diastolic Volume (4C MOD) 106 ml LV EF (4C MOD) 77 % LV Diastolic Volume (2C MOD) 80 ml LV EF (2C MOD) 84 % LV Diastolic Volume (BP MOD) 94 ml 62-150 LV Diastolic Volume Index (BP MOD) 38 ml/m2 34-74 LV Systolic Volume (BP MOD) 18 ml 21-61 LV Systolic Volume Index (BP MOD) 7 ml/m2 11-31 LV EF (BP MOD) 81 % 52-72 LV Diastolic Length (4C) 8.3 cm LV Systolic Length (4C) 6.9 cm LV Stroke Volume (4C MOD) 81 ml Atria Name Value Normal LA Dimensions LA Volume (4C A-L) 77 ml LA Volume (BP A-L) 64 ml RA Dimensions RA Systolic [place] Length (4C) 6.0 cm 2.1-2.7 RA Area (4C) 18.8 cm2 <=18.0 Report Signatures
--- NOTE | 2025-08-14 09:20 | P.PNIM_ITS ---
Progress Note: A&P Assessment and Plan (1) Altered mental state: Code(s): R41.82 - Altered mental status, unspecified Status: Acute Assessment and Plan: Per chart review patient stated that at 1945 patient had onset of confusion that believes lasted 10-15 minutes, his daughter witnessed this. - Head CT: Old infarct in left frontoparietal region. Mild nonspecific cerebral white matter disease, which likely represents chronic small vessel ischemic disease. - Head/neck CTA: Old infarct in left frontoparietal region. Mild nonspecific cerebral white matter disease, which likely represents chronic small vessel ischemic disease. No aneurysm or significant intracranial arterial stenosis. 0% stenosis of the proximal right internal carotid artery and 40% stenosis of the proximal left internal carotid artery - MRI: Old infarct in left frontoparietal region. Mild nonspecific cerebral white matter disease, which likely represents chronic small vessel ischemic disease. - Echo ordered - Started on high-intensity statin: atorvastatin dose increased from 10 mg to 80 mg daily - Provide loading dose Plavix 300 mg and aspirin 325, transition to Plavix 75 mg daily and 81 mg aspirin daily - Initiate stroke protocol, NIH Stroke Scale, neuro's q.4 hours - Monitor CBC, CMP, magnesium, troponin, and lipid profile - Monitor blood pressure, allow for permissive hypertension. - Telemetry monitoring - Monitor blood glucose - PT/OT eval and treat - Neurology consulted, appreciate assistance and recommendations ED MD consulted Dr. Parker, neurology, who recommend Plavix now and MRI and admission. Son-in-law is at bedside who states he was present during patient's acute episode of confusion yesterday. He states the patient had difficulty with word finding and random speech. Patient also endorses his left upper lip pain none at the time. He denies any tingling/numbness to the extremities. No acute neuro deficits on exam. Continue asa, plavix and statin therapy. Neuro to evaluate tomorrow. Echo ordered. (2) Essential (primary) hypertension: Code(s): I10 - Essential (primary) hypertension Status: Chronic Assessment and Plan: Chronic, continue home medications - amlodipine 5 mg daily and lisinopril 20 mg daily -blood pressures remain stable, continue to monitor (3) Nonalcoholic steatohepatitis (GRANADOS): Code(s): K75.81 - Nonalcoholic steatohepatitis (GRANADOS) Status: Acute Assessment and Plan: Chronic, continue home medications Time Spent With Patient Time with patient: 25 - 35 minutes Subjective Date/time seen: 08/14/25 09:20 Interval history: 80-year-old male with history of GRANADOS, peripheral arterial disease, CVA, hypertension presents to the hospital for an episode of confusion. Patient is pleasant sitting up comfortably in bed. He has no complaints at this time denying any headache, vision changes, lung/numbness/weakness, chest pain, shortness a breath, palpitations, nausea/vomiting, abdominal pain. Son-in-law is at bedside who states he was present during patient's acute episode of confusion yesterday. He states the patient had difficulty with word finding and random speech. Patient also endorses his left upper lip pain none at the time. He denies any tingling/numbness to the extremities. Review of Systems Review of Systems: All systems reviewed & are unremarkable except as noted in HPI and below Exam Narrative: AF HR 59 RR 18 SPO2 97 BP 119/71 General: male in no acute respiratory distress who is nontoxic appearing, sitting up in bed HEENT: Normocephalic. Atraumatic.Extraocular movement intact. Sclera clear and a nicteric. No facial asymmetry. Chest: Lungs are clear to auscultation bilaterally. No wheezes or crackles. CV: Heart was regular rate and rhythm. Abd: Abdomen was soft. Nontender. Nondistended. Positive bowel sounds. Ext: No clubbing, cyanosis, or edema. DP pulses bilaterally. Neuro: Patient is alert and oriented x4. Strength is 5/5 in both upper and lower extremities. Cranial nerves 2-12 are intact. Speech is clear. Objective Data Vital Signs Vital Signs: Vital Signs - 24 hr 08/13/25 10:19 08/13/25 13:28 08/13/25 14:00 Temperature 98.2 F Pulse Rate 68 69 Respiratory Rate 17 14 Blood Pressure 152/70 H 134/71 Pulse Oximetry 98 96 95 Oxygen Delivery Room Air 08/13/25 20:00 08/13/25 22:00 08/14/25 00:00 Temperature 97.3 F L Pulse Rate 66 59 L 55 L Respiratory Rate 16 Blood Pressure 132/66 Pulse Oximetry 97 Oxygen Delivery 08/14/25 00:15 08/14/25 02:52 08/14/25 04:00 Temperature Pulse Rate 95 95 52 L Respiratory Rate Blood Pressure Pulse Oximetry 96 96 Oxygen Delivery Autopap Autopap 08/14/25 04:14 Temperature 97.1 F L Pulse Rate 59 L Respiratory Rate Blood Pressure 119/71 Pulse Oximetry 97 Oxygen Delivery Intake/Output Intake/Output: Intake & Output 08/11/25 08/12/25 08/13/25 08/14/25 23:59 23:59 23:59 23:59 Intake Total 236 0 Balance 236 0 Meds/Results Medications: Active Medications Generic Name Dose Route Start Last Admin Trade Name Freq PRN Reason Stop Dose Admin Amlodipine Besylate 5 mg 08/13/25 17:00 08/13/25 16:52 Amlodipine Besylate 5 Mg Tablet BY MOUTH 5 mg BID [facility] Administration Aspirin 81 mg 08/13/25 09:00 08/13/25 10:10 Aspirin 81 Mg Enteric Tablet PO 81 mg QAM [facility] Administration Atorvastatin Calcium 80 mg 08/13/25 09:00 08/13/25 10:40 Atorvastatin 40 Mg Tablet PO 80 mg DAILY [facility] Administration Clopidogrel Bisulfate 75 mg 08/13/25 09:00 08/13/25 10:09 Clopidogrel Bisulfate 75 Mg Tablet PO 75 mg QAM [facility] Administration Dextrose 12.5 gm 08/12/25 22:38 Dextrose 50% 25 Gm/50 Ml Syringe IV PUSH PRN PRN Hypoglycemia Protocol Ergocalciferol 0 mcg 08/13/25 14:05 Ergocalciferol (Vitamin D2) 1,250 Mcg (50,000 Units) Capsule BY MOUTH .COMPLEX [facility] Fish Oil 2 gm 08/13/25 17:00 08/13/25 16:52 [place] 3 Polyunsat Fatty Acids 1 Gm Cap PO 2 gm BID [facility] Administration Glucose 15 gm 08/12/25 22:38 Glucose Oral Gel 15 Gm Of Glucse In 37.5 Gm Tube PO PRN PRN Hypoglycemia Protocol Dextrose 1,000 mls @ 100 mls/hr 08/12/25 22:38 Dextrose 5% 1,000 Ml IVPB PRN PRN Hypoglycemia Protocol Insulin Aspart 2 - 5 units 08/13/25 08:00 08/14/25 08:41 Insulin Aspart (*Bkc) 100 Units/Ml SUB-Q Not Given TIDWM [facility] Protocol Insulin Aspart 1 - 2 units 08/13/25 21:00 08/13/25 21:26 Insulin Aspart (*Bkc) 100 Units/Ml SUB-Q Not Given HS [facility] Protocol Lisinopril 20 mg 08/13/25 17:00 08/13/25 16:52 Lisinopril 20 Mg Tablet BY MOUTH 20 mg BID [facility] Administration Miscellaneous Information 0 each 08/13/25 00:01 Ergocalciferol Clarify Days Of Week Pt Takes XX 09/12/25 00:00 CLARIFY [facility] Radiology Results: ITS Impressions Head/Neck CTA 08/13/25 08:49 IMPRESSION: 1. Old infarct in left frontoparietal region. 2. Mild nonspecific cerebral white matter disease, which likely represents chronic small vessel ischemic disease. 3. No aneurysm or significant intracranial arterial stenosis. 4. 0% stenosis of the proximal right internal carotid artery relative to normal distal artery lumen diameter (NASCET criteria). 5. 40% stenosis of the proximal left internal carotid artery relative to normal distal artery lumen diameter. 6. Chronic sinusitis. Head CT 08/13/25 09:12 IMPRESSION: 1. Old infarct in left frontoparietal region. 2. Mild nonspecific cerebral white matter disease, which likely represents chronic small vessel ischemic disease. 3. Chronic left maxillary sinusitis. Brain MRI 08/14/25 07:34 IMPRESSION: 1. Old infarct in left frontoparietal region. 2. Mild nonspecific cerebral white matter disease and pontine disease, which likely represents chronic small vessel ischemic disease. 3. Chronic left maxillary sinusitis. Labs Labs: Laboratory Results - last 24 hr 08/13/25 08/13/25 08/13/25 12:25 17:15 20:28 POC Capillary Glucose 99 120 H 140 H 08/14/25 08:12 POC Capillary Glucose 130 H Quality VTE Prophylaxis VTE prophylaxis: mechanical ordered
[2025-08-14] MEDS: CLOPIDOGREL BISULFATE 75 MG TABLET PO (09:31)
[2025-08-14] MEDS: OMEGA 3 POLYUNSAT FATTY ACIDS 1 GM CAP 2 GM PO ×2 (09:31→17:15)
[2025-08-14] MEDS: ATORVASTATIN 40 MG TABLET 80 MG PO (09:31)
[2025-08-14] MEDS: ASPIRIN 81 MG ENTERIC TABLET PO (09:32)
[2025-08-14 10:01] LABS: Hematocrit 46.2 % (42.0-52.0); Hemoglobin 15.3 g/dL (14.0-18.0); Mean Corpuscular HGB Conc 33.1 g/dl (32-36); Mean Corpuscular Hemoglobin 32.6 pg (26-34); Mean Corpuscular Volume 98.3 fl (80-100); Platelet Count Result 276 k/mm3 (150-375); Red Blood Count 4.70 M/mm3 (4.6-6.20); White Blood Count 6.5 K/mm3 (4.5-10.0)
[2025-08-14 10:26] LABS: Alanine Aminotransferase 48 U/L (6-50); Albumin Level 4.7 g/dL (3.5-5.1); Alkaline Phosphatase 80 U/L (38-126); Anion Gap 9 mmol/L (4-12); Aspartate Amino Transferase 54 U/L (17-59); Bilirubin,Total 1.2 mg/dL (0.2-1.3); Blood Urea Nitrogen 16 mg/dL (9-20); Calcium 9.6 mg/dL (8.4-10.2); Carbon Dioxide 29 mmol/L (22-30); Chloride 102 mmol/L (98-107); Estimated CRCL calculation 73 ml/min; Estimated Glomerular Filt Rate > 60; Glucose 167 mg/dL (65-110); Potassium 4.3 mmol/L (3.4-5.0); Sodium 140 mmol/L (137-145); Total Protein 8.4 g/dL (6.3-8.2)
[2025-08-14] MEDS: PERFLUTREN LIPID MICROSPHERES 1.5 ML VIAL DILUTED TO 10 ML TOTAL VOLUME IV PUSH (15:28)
--- NOTE | 2025-08-14 15:28 | IVDEFINITY ---
Prior to administration of IV Definity the patient was educated on the risks and benefits of the imaging enhancing agent including potential adverse side effects. The patient verbalized understanding. Allergies were verified. No exclusion criteria were identified and at least one of the following inclusion criteria were met: 1) physician request, 2) patient technically difficult to image (per the [place] [employer] guidelines of two or more segments not discernable within the apical view), or 3) questionable left ventricular function. ?
[2025-08-15] VITALS: PULSE 62
[2025-08-15 04:00] VITALS: PULSE 54
[2025-08-15 04:37] VITALS: BP 127/62; PULSE 55; RESP 18; TEMP 36.3; O2SAT 98
[2025-08-15 05:30] LABS: Hematocrit 41.3 % (42.0-52.0); Hemoglobin 13.9 g/dL (14.0-18.0); Mean Corpuscular HGB Conc 33.7 g/dl (32-36); Mean Corpuscular Hemoglobin 32.6 pg (26-34); Mean Corpuscular Volume 96.9 fl (80-100); Platelet Count Result 265 k/mm3 (150-375); Red Blood Count 4.26 M/mm3 (4.6-6.20); White Blood Count 7.4 K/mm3 (4.5-10.0)
[2025-08-15 05:55] LABS: Alanine Aminotransferase 41 U/L (6-50); Albumin Level 4.1 g/dL (3.5-5.1); Alkaline Phosphatase 79 U/L (38-126); Anion Gap 9 mmol/L (4-12); Aspartate Amino Transferase 50 U/L (17-59); Bilirubin,Total 1.0 mg/dL (0.2-1.3); Blood Urea Nitrogen 16 mg/dL (9-20); Calcium 9.1 mg/dL (8.4-10.2); Carbon Dioxide 25 mmol/L (22-30); Chloride 104 mmol/L (98-107); Estimated CRCL calculation 77 ml/min; Estimated Glomerular Filt Rate > 60; Glucose 120 mg/dL (65-110); Potassium 4.1 mmol/L (3.4-5.0); Sodium 138 mmol/L (137-145); Total Protein 7.2 g/dL (6.3-8.2)
[2025-08-15] MEDS: ATORVASTATIN 40 MG TABLET 80 MG PO (09:04)
[2025-08-15] MEDS: ASPIRIN 81 MG ENTERIC TABLET PO (09:05)
[2025-08-15] MEDS: CLOPIDOGREL BISULFATE 75 MG TABLET PO (09:05)
[2025-08-15] MEDS: OMEGA 3 POLYUNSAT FATTY ACIDS 1 GM CAP 2 GM PO (09:07)
[2025-08-15] MEDS: ERGOCALCIFEROL (VITAMIN D2) 1,250 MCG (50,000 UNITS) CAPSULE 1250 MCG BY MOUTH (10:01)
--- NOTE | 2025-08-15 12:08 | P.CONNEU_ITS ---
Assessment and Plan Assessment and plan (1) Altered mental state: Code(s): R41.82 - Altered mental status, unspecified Status: Acute (2) Focal seizure: Code(s): R56.9 - Unspecified convulsions Status: Acute Plan An episode of confusion though short lasting raising the possibility of the TIA, evaluation completely unrevealing except the abnormal CT scan an MRI and considering that benefit of doubt is being given to the possibility of partial seizure with documented previous stroke and for that reason Keppra 500mg p.o. b.i.d. has been added with all the pros and cons discussed with the patient and his daughter otherwise he is already on aspirin and Plavix that will be continued as such he can keep the follow-up in the Neurology office as an outpatient. Consult date: 08/15/25 HPI: Joby Rodriges is a 80 year old male Admitted to the hospital through the emergency room with the complaints of transient confusion starting at 7:45 p.m. lasting for 10 to 15 minutes observed by his daughter, Without any Other associated symptomatology. patient has ongoing history of 1. Peripheral arterial disease 2. [place] 3. Hypertension 4. Previous stroke. His medications included aspirin 81mg daily, he is allergic to hydralazine. He does have ongoing history of being former smoker, occasional alcohol use, and initial exam in the emergency room was nonfocal. He had normal vital signs except blood pressure 149/80, CBC was normal, BMP was normal, UA was normal, drug screen was negative, CTA of the head and neck documented old infarct in left frontoparietal region and 40% stenosis of the proximal left internal carotid artery and chronic sinusitis Subsequent MRI of the brain while in the hospital documented old infarct in left frontoparietal region. During the hospitalization echocardiogram has been done which revealed no significant abnormalities. Review of Systems 2 Review of Systems: All systems reviewed & are unremarkable except as noted in HPI and below PMFSH Past Medical History Medical History Obesity (BMI 30.0-34.9) Perioral dermatitis 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 Overweight Seborrheic dermatitis, unspecified Family History Family History Sibling Family history of kidney stones Father Diabetes mellitus Family history of lymphoma Mother Family history of glaucoma Family history of cardiovascular disease Daughter Breast cancer Migraine Other Family history of elevated blood lipids Social History Social History Smoking status: Former smoker Alcohol intake: current Drinks per week: 1 Alcohol use details: occasionally Substance use: never Substance use type: does not use Do You Feel Safe in your Home?: Yes Lack of Transportation: No Lack of Food: Never True Current Housing: I Have Housing Concerned About Future Housing: No Difficulty Paying Gas/Electric Bills: No Difficulty Paying for Meds: No Currently Unemployed: No Education: High School Diploma/GED Difficulty w/ Childcare or Family Care: No Spiritual care concerns: No Meds Home Medications and Allergies Home Medications ?Medication ?Instructions ?Recorded ?Confirmed ?Type aspirin 81 mg tablet,delayed 81 mg PO DAILY 12/01/19 1 History release (Adult Low Dose Aspirin) icosapent ethyl 1 gram capsule 2 g (2 x 1 gram) PO BID #360 caps 11/01/24 08/12/25 Rx (Vascepa) metformin 500 mg tablet,extended See Rx Instructions . Route 03/21/25 08/12/25 Rx release 24 hr .COMPLEX #180 tabs amlodipine 5 mg tablet See Rx Instructions .Route 0 06/19/25 08/12/25 Rx .COMPLEX #180 tabs atorvastatin 10 mg tablet See Rx Instructions .Route 0 06/19/25 08/12/25 Rx .COMPLEX #90 tabs clopidogrel 75 mg tablet See Rx Instructions .Route 0 06/19/25 08/12/25 Rx .COMPLEX #90 tabs ergocalciferol (vitamin D2) 1,250 See Rx Instructions .Route 06/19/25 08/12/25 Rx mcg (50,000 unit) capsule (Vitamin .COMPLEX #26 caps D2) lisinopril 20 mg tablet See Rx Instructions .Route 0 06/19/25 08/12/25 Rx .COMPLEX #180 tabs Allergies Allergy/AdvReac Type Severity Reaction Status Date / Time hydralazine Allergy Unknown Hives / Verified 08/13/25 13:41 Red Face Vital Signs Vital Signs - 24 hr 08/14/25 14:00 08/14/25 16:00 08/14/25 20:00 Temperature 36.4 C Pulse Rate 74 67 94 Respiratory Rate 18 Blood Pressure 144/70 H Pulse Oximetry 98 08/14/25 22:00 08/15/25 00:00 08/15/25 04:00 Temperature 36.7 C Pulse Rate 85 62 54 L Respiratory Rate 16 Blood Pressure 144/75 H Pulse Oximetry 96 08/15/25 04:37 Temperature 36.3 C L Pulse Rate 55 L Respiratory Rate 18 Blood Pressure 127/62 Pulse Oximetry 98 Exam 2 Narrative: Revealed him to be awake alert cooperative in no obvious acute distress, his speech not dysphasic not dysarthric not dysphonic, sitting in chair, daughter happens to be in the room, head normocephalic with no bruit, ear nose throat exam normal, neck supple with no bruit, heart regular with no murmur, lungs clear to auscultation, abdomen soft nontender, neurologically awake alert oriented x3, his speech not dysphasic not dysarthric not dysphonic, cranial nerve examination normal with no visual field cut, no clinical drift on outstretched upper extremities against gravity with eyes closed, deep tendon reflexes symmetrical plantar responses only questionable on the right. No gross cerebellar deficit. Results Labs 08/15/25 05:06 08/15/25 05:06 Labs: Short CBC 08/15/25 Range/Units 05:06 WBC 7.4 (4.5-10.0) K/mm3 Hgb 13.9 L (14.0-18.0) g/dL Hct 41.3 L (42.0-52.0) % Plt Count 265 (150-375) k/mm3 BMP 08/15/25 05:06 Sodium 138 Potassium 4.1 Chloride 104 Carbon Dioxide 25 BUN 16 Creatinine 0.86 Glucose 120 H Calcium 9.1 Liver Function 08/15/25 Range/Units 05:06 Total Bilirubin 1.0 (0.2-1.3) mg/dL AST 50 (17-59) U/L ALT 41 (6-50) U/L Alkaline Phosphatase 79 (38-126) U/L Albumin 4.1 (3.5-5.1) g/dL
--- NOTE | 2025-08-15 13:24 | P.DS_ITS ---
DS: Admitting Diagnosis Discharge Date 08/15/2025 Admitting Diagnosis AMS Focal seizure HTN GRANADOS DS: Discharge Diagnosis Discharge Diagnosis (1) Altered mental state: Code(s): R41.82 - Altered mental status, unspecified Status: Acute (2) Focal seizure: Code(s): R56.9 - Unspecified convulsions Status: Acute (3) Essential (primary) hypertension: Code(s): I10 - Essential (primary) hypertension Status: Chronic (4) Nonalcoholic steatohepatitis (GRANADOS): Code(s): K75.81 - Nonalcoholic steatohepatitis (GRANADOS) Status: Acute DS: Summary Hospital Course Reason for hospitalization: AMS Focal seizure HTN GRANADOS Hospital Course: 80-year-old male with history of GRANADOS, peripheral arterial disease, CVA, hypertension presents to the hospital for an episode of confusion and difficulty with word finding. Started on high-intensity statin and provided a loading dose Plavix 300 mg and aspirin 325 before being transition to Plavix 75 mg daily and 81 mg aspirin daily for concern of acute cva. Neurology evaluated. Head CT: Old infarct in left frontoparietal region. Mild nonspecific cerebral white matter disease, which likely represents chronic small vessel ischemic disease. Head/neck CTA: Old infarct in left frontoparietal region. Mild nonspecific cerebral white matter disease, which likely represents chronic small vessel ischemic disease. No aneurysm or significant intracranial arterial stenosis. 0% stenosis of the proximal right internal carotid artery and 40% stenosis of the proximal left internal carotid artery. MRI: Old infarct in left frontoparietal region. Mild nonspecific cerebral white matter disease, which likely represents chronic small vessel ischemic disease. Echo obtained unremarkable. Per neurology possible tia vs focal seizure. Given prior cva and its location, recommended treating for focal seizure with keppra 500 mg bid for antiseizure. Discussed with patient that he is to not drive or operate heavy machinery for at least 3 months or until cleared by neurology. Patient to continue aspirin and plavix. Had an in depth conversation about the risks and benefits of dual antiplatelet therapy with patient and family. They stated understanding. Patient to follow up with neurology as scheduled. Patient had no complaints at time of discharge was back to his baseline function. He denies any chest pain, shortness a breath, palpitations, nausea vomiting, abdominal pain, dizziness/lightheadedness, or difficulties with ambulation. Patient discharged home with family in a stable condition. He has a follow-up his primary care provider in 1 week and Neurology as scheduled. Status at Discharge Functional status at discharge: independent ambulation Time Spent with Patient Time attestation: Total time spent providing and/or coordinating discharge services: Time spent: Greater than 30 minutes Exam Narrative: AF HR 55 RR 18 Spo2 98 BP 127/62 General: male in no acute respiratory distress who is nontoxic appearing, sitting up in bed HEENT: Normocephalic. Atraumatic.Extraocular movement intact. Sclera clear and anicteric. No facial asymmetry. Chest: Lungs are clear to auscultation bilaterally. No wheezes or crackles. CV: Heart was regular rate and rhythm. Abd: Abdomen was soft. Nontender. Nondistended. Positive bowel sounds. Ext: No clubbing, cyanosis, or edema. DP pulses bilaterally. Neuro: Patient is alert and oriented x4. Strength is 5/5 in both upper and lower extremities. Cranial nerves 2-12 are intact. Speech is clear. DS: Data Data Completed and Pending Completed studies during hospitalization: brain mri head ct head/neck cta Labs on day of discharge: Labs from last 24 hours 08/15/25 08/15/25 08/14/25 08:04 05:06 20:47 WBC 7.4 RBC 4.26 L Hgb 13.9 L Hct 41.3 L MCV 96.9 MCH 32.6 MCHC 33.7 RDW 12.9 Plt Count 265 MPV 9.0 Sodium 138 Potassium 4.1 Chloride 104 Carbon Dioxide 25 Anion Gap 9 BUN 16 Creatinine 0.86 Estim Creat Clear Calc 77 Estimated GFR > 60 Glucose 120 H POC Capillary Glucose 132 H 149 H Calcium 9.1 Total Bilirubin 1.0 AST 50 ALT 41 Alkaline Phosphatase 79 Total Protein 7.2 Albumin 4.1 08/14/25 16:31 WBC RBC Hgb Hct MCV MCH MCHC RDW Plt Count MPV Sodium Potassium Chloride Carbon Dioxide Anion Gap BUN Creatinine Estim Creat Clear Calc Estimated GFR Glucose POC Capillary Glucose 127 H Calcium Total Bilirubin AST ALT Alkaline Phosphatase Total Protein Albumin Discharge Plan Discharge Attending physician on discharge: Shubham Colon Consulting providers: Eula Ma; Joni Parker Discharging Clinician: Eula Ma Anticipated Discharge Date/Time: 08/15/25 13:02 Patient Disposition: Home Activity: as tolerated Diet: heart healthy and diabetic Discharge Instructions: Discharge disposition: Patient hospital for altered mental status Evaluated by Neurology Concern for possible TIA versus an acute seizure Started on the Keppra as antiseizure medication Do not drive or operate heavy machinery for at least 3 months until cleared by Neurology Attached is information on this medication Patient remains on aspirin and Plavix as previously prescribed Atorvastatin dose increased Eat well balanced meals and stay hydrated Strict bleeding precautions since you are on Plavix and aspirin including shaving with an electric razor, holding pressure for greater than 20 minutes for injury, protection of had with any falls, etc. Follow-up with neurology in 6-8 weeks Monitor blood pressures Take caution while standing, rising, or moving Change positions slowly taking a break between each position change If you standing feel dizzy sit back down and take a break Encouraged to continue with yearly vaccinations Return to the emergency department if he developed sudden shortness of breath, chest pain, nausea, vomiting, upset stomach or intractable diarrhea Return to the emergency department if you develop fever greater than 100.5 Follow-up with the primary care physician within 1-2 weeks Thank you for choosing [facility] for your healthcare needs Patient Instructions: Levetiracetam (By mouth), Transient Ischemic Attack (DC), New-Onset Seizure in Adults (DC) Patient Language: Gabonese Stand Alone Forms: General Discharge Information Follow-up/Referrals: Jp Holm MD [Primary Care Provider, Family Practice] - 1 Week Rajesh Pierre MD [Physician, Neurology] - 4 Weeks Discharge Medications: New atorvastatin 40 mg Tablet 80 mg PO DAILY Qty: 30 0RF levetiracetam [Keppra] 500 mg Tablet 500 mg PO Q12HR Qty: 60 0RF Continued aspirin [Adult Low Dose Aspirin] 81 mg tablet,delayed release (DR/EC) 81 mg PO DAILY icosapent ethyl [Vascepa] 1 gram capsule 2 g PO BID Qty: 360 3RF metformin 500 mg tablet extended release 24 hr See Rx Instructions .ROUTE .COMPLEX Qty: 180 1RF Dose Instruction: TAKE 1 TABLET BY MOUTH TWICE DAILY Rx Instructions: TAKE 1 TABLET BY MOUTH TWICE DAILY amlodipine 5 mg tablet See Rx Instructions .ROUTE .COMPLEX Qty: 180 1RF Dose Instruction: TAKE 1 TABLET BY MOUTH TWICE DAILY Rx Instructions: TAKE 1 TABLET BY MOUTH TWICE DAILY lisinopril 20 mg tablet See Rx Instructions .ROUTE .COMPLEX Qty: 180 1RF Dose Instruction: TAKE 1 TABLET BY MOUTH TWICE DAILY Rx Instructions: TAKE 1 TABLET BY MOUTH TWICE DAILY clopidogrel 75 mg tablet See Rx Instructions .ROUTE .COMPLEX Qty: 90 1RF Dose Instruction: TAKE 1 TABLET BY MOUTH DAILY Rx Instructions: TAKE 1 TABLET BY MOUTH DAILY ergocalciferol (vitamin D2) [Vitamin D2] 1,250 mcg (50,000 unit) capsule See Rx Instructions .ROUTE .COMPLEX Qty: 26 3RF Dose Instruction: TAKE 2 CAPSULES BY MOUTH WEEKLY Rx Instructions: TAKE 2 CAPSULES BY MOUTH WEEKLY Discontinued atorvastatin 10 mg tablet See Rx Instructions .ROUTE .COMPLEX Qty: 90 1RF Dose Instruction: TAKE 1 TABLET BY MOUTH DAILY Rx Instructions: TAKE 1 TABLET BY MOUTH DAILY Date of admission: 08/13/25 10:18 Primary Care Provider: Jp Holm Admitting Provider: Lydia Joshi Attending physician on admission: Lydia Joshi Condition: Stable Hospitalist MIPS Heart Failure (Exclusion) Patient has history of Heart Transplant or Left Ventricular Assistive Device?: No IF YES, STOP HERE Heart Failure (Qualifier) Patient has current or prior documentation of LVEF less than or equal to 40%, or mod/servere depressed LVSF?: No IF NO, STOP HERE
--- OUTSIDE RECORDS SUMMARY | 2025-08-16 18:48 | XMS_ITS | Clinical Summary ---
Author Organization [facility] [address] Address [address] [place] [address] Care Team Providers Care Annealing Operator Name Role Phone Jp Holm MD Primary Care Provider [phone] Social History Tobacco Use Types Packs/Day Years Used Date Smoking Tobacco: Never Assessed Personal Safety Answer Date Recorded Getting School Help Needed Not on file 12/25 Sex and Gender Information Value Date Recorded Sex Assigned at Not on file Legal Sex Male 2:27 AM [employer] Gender Identity Not on file Sexual Orientation [...] , 08/11/2019, 08/09/2018, Additional history exists Insurance [facility] MEDIC[facility] Care Teams Annealing Operator Relationship Specialty Start Date End Date Jp Holm MD PCP - General 01/15/16
== END 2025-08-15 14:45 | disposition home or self-care (01) | DRG 101 ==
LOC: ANHED 21:56 → ANH3MEDSUR 22:43 → ANH3MED 08-14 06:44
PROVIDERS: Admitting Provider General Practice; Emergency Provider Student in an Organized Health Care Education/Training Program; PCP Family Medicine; Visit Provider Student in an Organized Health Care Education/Training Program
DX: R56.9 Unspecified convulsions (principal); Z68.41 Body mass index [BMI] 40.0-44.9, adult; R47.1 Dysarthria and anarthria; E66.9 Obesity, unspecified; I10 Essential (primary) hypertension; I73.9 Peripheral vascular disease, unspecified; K75.81 Nonalcoholic steatohepatitis (NASH); E78.1 Pure hyperglyceridemia; E78.2 Mixed hyperlipidemia; Z86.73 Personal history of transient ischemic attack (TIA), and cerebral infarction without residual deficits
CPT/HCPCS: 36415; 70450; 70496; 70498; 70551; 80053; 80307; 81003; 82077; 82948; 84484; 85025; 85027; 85610; 85730; 93005; 94002; 96375; 99285; A9270; C8929; Q9957; Q9967